=== PATIENT | female | born 1950 | race Two or more races ===

== ENCOUNTER 2019-05-03 07:39 | Day surgery (SDC) | payer MEDICARE, OTHER ==
--- NOTE | 2019-05-02 15:04 | Pre-Procedure Note/Attestation ---
Pre-Procedure Note/Attestation Complete Prior to Procedure Planned Procedure: left Procedure Narrative: Cataract extraction with intraocular lens implant left eye Indications for Procedure Pre-Operative Diagnosis: Nuclear Sclerotic Cataract Left Eye Attestation I attest that I discussed the nature of the procedure; its benefits; risks and complications; and alternatives (and the risks and benefits of such alternatives ), prior to the procedure, with the patient (or the patient's legal healthcare sales representative). I attest that, if there was a reasonable possibility of needing a blood transfusion, the patient (or the patient's legal healthcare sales representative) was given the [facility] standardized written summary, pursuant to the [place] Blood Safety Act ([place] Health and Safety Code # 1645, as amended). I attest that I re-evaluated the patient just prior to the surgery and that there has been no change in the patient's H&P, except as documented below: Sean Cordero MD May 02, 2019 15:04
--- NOTE | 2019-05-02 15:06 | Opthalmology H&P ---
Ophthalmology H&P H&P Chief Complaint: decreased vision in left eye HPI Vision Affects Ability to: read, manage personal affairs HPI Narrative Blurry vision Exam Visual Acuity: OD 20/40 OS 20/200 Tension: OD 13 OS 12 Eye Exam: normal OU: external exam, palpebral fissure-width, marginal reflex distance, levator function, corneas, anterior chambers, fundus exam; findings: lens - NS Cataracts OU Assessment/Plan Treatment Plan: cataract extraction w/ lens implant Goals of Treatment: improvement of vision, enhance quality of life Attestation Attestation The risks and benefits of the surgery as well as alternative procedures were explained to the patient in detail. Sean Cordero MD May 02, 2019 15:06
[2019-05-03] VITALS (8 sets, daily range): BP systolic 116–157; BP diastolic 53–72
[~2019-05-03] VITALS: Ht 154.9 cm; Wt 68.0 kg
[~2019-05-03 07:39] MED LIST: Akten 3.5% 1ml Btl LEFT EYE ONE; Dexamethasone 4mg/ml vial ONE; Maxitrol Opth Oint 3.5gm ONE; Pilocarpine 1% Opth 15ml Soln ONE; Pred Forte 1% Opth Susp 1ml ONE; Proparacaine 0.5% Opth Soln 15ml LEFT EYE ONE; Tetracaine 0.5% Opth 4ml Soln LEFT EYE ONE
[2019-05-03] MEDS: Tobramycin Op Soln 0.3% 5ml LEFT EYE SCH ×3 (10:56→11:19)
[2019-05-03] MEDS: Tropicamide 1% Opth 15ml Soln LEFT EYE SCH ×3 (10:56→11:20)
[2019-05-03] MEDS: Cyclopentolate 1% Opth Sol 2ml LEFT EYE SCH ×2 (10:56→11:20)
[2019-05-03] MEDS: Phenylephrine 10% Opth Soln 5ml LEFT EYE SCH ×3 (10:57→11:20)
[2019-05-03] MEDS: Diclofenac Sod 0.1% Op Soln LEFT EYE SCH ×3 (10:57→11:20)
[2019-05-03] MEDS ORDERED: BENAZEPRIL HCL10 MG ORAL (11:13)
[2019-05-03] MEDS ORDERED: VITAMIN D22000 UNIT PO (11:13)
[2019-05-03] MEDS ORDERED: FOSAMAX70 MG ORAL (11:13)
[2019-05-03] MEDS ORDERED: ATORVASTATIN CA20 MG ORAL (11:13)
[2019-05-03] MEDS ORDERED: fentaNYL 100 mcg/2 mL IV ONE (13:39)
[2019-05-03] MEDS ORDERED: LR 1000ml 1,000 ML IVLG SCH (13:45)
[2019-05-03] MEDS ORDERED: fentaNYL 100 mcg/2 mL IV PRN (13:45)
--- NOTE | 2019-05-03 13:45 | Anethesia Preoperative Eval ---
Anesthesia Pre-op PMH/ROS General Date of Evaluation: May 03, 2019 Time of Evaluation: 13:43 Anesthesiologist: Mirtha ASA Score: ASA 2 Mallampati Score Class I : Soft palate, uvula, fauces, pillars visible Class II: Soft palate, uvula, fauces visible Class III: Soft palate, base of uvula visible Class IV: Only hard plate visible Mallampati Classification: Class II Surgeon: Consuelo Diagnosis: L eye cataract Surgical Procedure: L eye cataract extraction with IOL Anesthesia History: none Family History: no anesthesia problems Allergies: Coded Allergies: No Known Allergies (Unverified , 05/02/19) Medications: see eMAR Patient NPO?: Yes Past Medical History Cardiovascular: Reports: HTN; Denies: CAD, OR, valve dz, arrhythmia, other Pulmonary: Denies: asthma, COPD, CARLEY, other Gastrointestinal/Genitourinary: Reports: GERD; Denies: CRI, ESRD, other Endocrine: Denies: DM, hypothyroidism, steroids, other HEENT: Reports: cataract (L), cataract (R) Hematology/Immune: Denies: anemia, DVT, bleeding disorder, other Musculoskeletal/Integumentary: Reports: OA; Denies: RA, DJD, DDD, edema, other PMH Narrative: as above PSxH Narrative: See H&P Anesthesia Pre-op Phys. Exam Physician Exam Last Vital Signs Date Time Temp Pulse Resp B/P (MAP) Pulse Ox O2 Delivery O2 Flow Rate FiO2 05/03/19 11:17 Room Air 05/03/19 10:56 98.3 68 18 157/58 99 Constitutional: NAD Neurologic: CN 2-12 intact Cardiovascular: RRR, no M/R/G Respiratory: CTA Gastrointestinal: S/NT/ND Airway Exam Mallampati Score: Class II MO: limited Neck: stiff ROM: limited Teeth: missing Dentures: no upper, no lower Anesthesia Pre-op A/P Labs see chart Risk Assessment & Plan Assessment: ASA 2 Plan: MAC Status Change Before Surgery: Michael Gonzales MD May 03, 2019 13:45
[2019-05-03] MEDS ORDERED: Sterile Water Irrig 1000ml IRRIG ONE (14:00)
[2019-05-03] MEDS ORDERED: NS Irrig 1000ml ONE (14:00)
[2019-05-03] MEDS ORDERED: Propofol 200mg/20ml IV ONE (14:00)
[2019-05-03] MEDS ORDERED: LR 1000ml ONE (14:00)
--- NOTE | 2019-05-03 14:48 | Immediate Post-Op Evaluation ---
Immediate Post-Op Evalulation Immediate Post-Op Evalulation Procedure: L eye cataracy extraction with IOL Date of Evaluation: May 03, 2019 Time of Evaluation: 14:47 IV Fluids: 200 Blood Products: none Estimated Blood Loss: none Urinary Output: none Blood Pressure Systolic: 134 Blood Pressure Diastolic: 57 Pulse Rate: 62 Respiratory Rate: 20 O2 Sat by Pulse Oximetry: 98 Temperature (Fahrenheit): 97.6 Pain Score (1-10): 1 Nausea: No Vomiting: No Complications none Patient Status: awake, patent, none Michael Shannon MD May 03, 2019 14:48
--- NOTE | 2019-05-03 18:32 | 48 Hour Post Anesthesia Eval ---
Post Anesthesia Evaluation Procedure: L eye cataracy extraction with IOL Date of Evaluation: May 03, 2019 Time of Evaluation: 18:31 Blood Pressure Systolic: 128 0: 56 Pulse Rate: 72 Respiratory Rate: 20 Temperature (Fahrenheit): 97.6 O2 Sat by Pulse Oximetry: 98 Airway: patent Nausea: No Vomiting: No Pain Intensity: 1 Hydration Status: adequate Cardiopulmonary Status: stable Mental Status/LOC: patient returned to baseline Follow-up Care/Observations: n/a Post-Anesthesia Complications: none Follow-up care needed: ready to discharge Michael Shannon MD May 03, 2019 18:32
--- NOTE | 2019-05-06 14:16 | Brief Operative Note ---
Immediate Post Operative Note Operative Note Chief Complaint: Blurry vision Pre-op Diagnosis: Nuclear Sclerotic Cataract Left Eye Procedure: Cataract extraction with intraocular lens implant left eye Post-op Diagnosis: Pseudophakia Post-op Diagnosis: same as pre-op Surgeon: Sean Cordero MD Anesthesiologist: Michael Shannon MD Anesthesia: MAC Specimen: none Complications: none Condition: stable Fluids: LR Estimated Blood Loss: none Drains: none Implant(s) used?: Yes Sean Cordero MD May 06, 2019 14:16
--- NOTE | 2019-05-06 14:19 | Operative Note - PDOC ---
Operative Note Operative Note Date of Operation/Procedure: May 03, 2019 Chief Complaint: Blurry vision Pre-op Diagnosis: Nuclear Sclerotic Cataract Left Eye Procedure: Cataract extraction with intraocular lens implant left eye Post-op Diagnosis: Pseudophakia Post-op Diagnosis: same as pre-op Surgeon: Sean Cordero MD Anesthesiologist: Michael Shannon MD Anesthesia: MAC Specimen: none Complications: none Condition: stable Fluids: LR Estimated Blood Loss: none Drains: none Implant(s) used?: Yes - IOL -OS Indications for Procedure Nuclear sclerotic cataract left eye Description of Procedure This patient has been complaining visually significant cataract in the left eye with the best corrected visual acuity of 20/200 under moderate glare conditions worse. The patient complains of difficulties with glare in performing activities of daily living and wants to manage personal affairs with comfort and accuracy and see well enough to move with safety at home and outdoors. The risks, benefits and alternatives of the procedure were discussed with the patient in the office prior to scheduling surgery. All questions from the patient were answered after the surgical procedure was explained in detail. The risks of the procedure as explained to the patient include, but are not limited to, pain, infection, bleeding, loss of vision, retinal detachment, need for further surgery, loss of lens nucleus, double vision, etc. Alternative procedures were discussed which include, to do nothing or seek a second opinion. Informed consent for this procedure was obtained from the patient. The patient was referred to a primary care physician for a cardiopulmonary clearance prior to surgery, after proper evaluation was done patient was properly scheduled for outpatient surgery. The patient was brought to the operating room where the anesthesiologist established I.V. lines and cardiac monitoring leads. Mild intravenous sedation was administered. The patient was then prepared with a 5% solution of povidone -iodine to the conjunctival fornix and lashes, and a 5% solution of povidone- iodine to the lids and periorbital skin. The patient was then draped in the usual sterile fashion. A lid speculum was then placed in the operative eye. A keratome blade was then used to create a biplanar incision into the anterior chamber. Viscoelastics was then instilled into the anterior chamber. A 3-mm single pass clear corneal incision was made just anterior to the vascular arcade of the temporal limbus using a keratome. Anterior capsulorrhexis was created. The nucleus was hydrodissected and hydrodelineated, and was freely movable in the capsular bag. The nucleus was then phacoemulsified. Following the deep groove formation, the lens was split bimanually and epicortex removed under vacuum burst-mode phacoemulsification. Peripheral cortex was removed with the irrigation and aspiration handpiece. The capsular bag was expanded with viscoelastic. The intraocular lens was then inspected for right power and size and thought to be satisfactory. The implant was inspected under the microscope and found to be free of defects. The implant was inserted into the cartridge system under viscoelastic and placed in the capsular bag. The trailing haptic was positioned with the cartridge system. Viscoelastics was removed from the anterior chamber using the irrigation and aspiration unit. The corneal wound was then tested for leaks and none were found. The lid speculum were then removed. Sponge and needle counts were correct. An eye patch and shield were placed over the operative eye. The patient was taken to the recovery room in stable condition. There were no complications. The patient tolerated the procedure well. The patient was then transferred to the ambulatory surgery unit in stable and satisfactory condition , was given detailed written instructions and asked to follow up in the office the next day. Sean Cordero MD May 06, 2019 14:19
== END 2019-05-03 15:40 | disposition home or self-care (01) ==
LOC: SUR 07:39
DX: H25.12 Age-related nuclear cataract, left eye (principal); I10 Essential (primary) hypertension; K21.9 Gastro-esophageal reflux disease without esophagitis; M19.90 Unspecified osteoarthritis, unspecified site
CPT/HCPCS: 66984; J1100; J2704; J3010; V2632; 94003; 94150